=== PATIENT | male | born 1950 | race Caucasian/White ===

== ENCOUNTER 2017-11-28 19:37 | Emergency (ER) | payer MEDICARE, OTHER ==
[2017-11-28 19:46] VITALS: BP 176/86
[2017-11-28] MEDS ORDERED: BUPIVACAINE HCL/PF 5 MG/ML 10ML VIAL IJ ONE (19:47)
[2017-11-28] MEDS ORDERED: NAPROXEN 250 MG TABLET PO ONE (19:48)
[2017-11-28] MEDS ORDERED: DIPH,PERTUSS(ACELL),TET VAC/PF 0.5 ML DISP.SYRIN IM ONE (19:48)
[2017-11-28] MEDS ORDERED: NEOMYCIN/BACITRACIN/POLYMYXINB 1 EACH OINT.PACK TP ONE (20:04)
--- NOTE | 2017-11-28 20:08 | ED Physician Documentation ---
General Adult - HISTORIAN Historian: patient - HPI Stated Complaint: Head Lacs Chief Complaint: Laceration/Recheck/Suture Additional Information: Hit his head on the underside of his table saw just prior to comin to ER. Unknown last tetanus. No LOC. No other modifying factors or associated signs. - ROS CONST: no problems - PAST HX Past History: hypertension (HLD) Other History: none Allergies/Adverse Reactions: Allergies Allergy/AdvReac Type Severity Reaction Status Date / Time No Known Allergies Allergy Verified 11/28/17 19:47 Home Medications: Ambulatory Orders Medication Instructions Recorded Gemfibrozil 600 mg PO BID 04/09/12 Metoprolol Succinate 50 mg PO BID 04/09/12 Ranitidine HCl 150 mg PO DAILY 04/09/12 Simvastatin 10 mg PO DAILY 04/09/12 - SOCIAL HX Smoking History: cigarettes - FAMILY HX Family History: No - VITAL SIGNS Vital Signs: Vital Signs Temp Pulse Resp BP Pulse Ox 86 17 176/86 96 11/28/17 19:40 11/28/17 19:40 11/28/17 19:40 11/28/17 19:40 - REVIEWED ASSESSMENTS Nursing Assessment Reviewed: Yes Vitals Reviewed: Yes ED Results Lab/Radiology - Orders Orders: ED Orders Category Date Time Status Bupivacaine HCl/Pf [Marcaine 0.5%] Med 11/28/17 19:47 Once 50 mg IJ NOW ONE Diph,Pertuss(Acell),Tet Vac/Pf [Adacel] Med 11/28/17 19:48 Once 0.5 ml IM .ONCE ONE Naproxen [Naprosyn] Med 11/28/17 19:48 Once 500 mg PO NOW ONE General Adult Physical Exam - PHYSICAL EXAM GENERAL APPEARANCE: mild distress EENT: eye inspection normal, ENT inspection normal, BLAKE (EOMI) NECK: normal inspection, supple RESPIRATORY: no resp distress BACK: normal inspection SKIN: warm/dry, normal color, other (curvolinear 3 cm lac right parietal area and 6 cm irregular lac with flap near the same area as first; half of this lac is very superficial) EXTREMITIES: normal range of motion (gait and stance) NEURO: CN's nml as tested, motor nml, sensation nml, cognition normal Discharge Clincal Impression: Scalp laceration Qualifiers: Encounter type: initial encounter Qualified Code(s): S01.01XA - Laceration without foreign body of scalp, initial encounter Referrals: Sofia Reynoso MD [Primary Care Provider] - 2 Days Additional Instructions: Keep the area clean and dry. You can shampoo your hair as usual, but don't scrub the hang. Ask your provider to remove the hang in 10-14 days. Return to the ER immediately if the area seems to be infected. Condition: Good Disposition: 01 HOME, SELF-CARE Decision to Admit: NO Decision Time: 10:10
== END 2017-11-28 20:13 | disposition home or self-care (01) ==
LOC: ED 19:37
DX: S01.01XA Laceration without foreign body of scalp, initial encounter (principal); W22.8XXA Striking against or struck by other objects, initial encounter; Y92.9 Unspecified place or not applicable; Y93.H3 Activity, building and construction; Y99.9 Unspecified external cause status
CPT/HCPCS: 90715; J3490; 12004; 90471